=== PATIENT | female | born 1955 | race Caucasian/White ===

== ENCOUNTER → 2021-02-20 | Day surgery (SDC) | payer MEDICARE, OTHER ==
[2021-02-15 15:04] LABS: BASOPHILS % 0.3 % (0.0-1.0); EOSINOPHILS # (AUTO) 0.2 (0.0-0.4); EOSINOPHILS % 2.1 % (0.0-6.0); HEMATOCRIT 41.6 % (34.2-44.1); HEMOGLOBIN 13.5 g/dL (12.0-16.0); LYMPHOCYTES # (AUTO) 1.3 (1.0-3.2); LYMPHOCYTES % 15.3 % (18.0-39.1); MEAN CORPUSCULAR HEMOGLOBIN 31.3 pg (28-32); MEAN CORPUSCULAR HGB CONC 32.5 g/dL (31-35); MEAN CORPUSCULAR VOLUME 96.3 fL (81-99); MONOCYTES # (AUTO) 0.5 (0.2-0.8); NEUTROPHILS # (AUTO) 6.6 (2.1-6.9); NEUTROPHILS % 76.1 % (38.7-80.0); PLATELET COUNT 182 x10e3/uL (140-360); RED BLOOD COUNT 4.32 x10e6/uL (3.6-5.1); RED CELL DISTRIBUTION WIDTH 16.6 % (11.7-14.4)
[2021-02-15 15:21] LABS: ALBUMIN 3.3 g/dL (3.5-5.0); ALBUMIN/GLOBULIN RATIO 0.9 (0.8-2.0); ANION GAP 18.6 mmol/L (8-16); CALCIUM 8.7 mg/dL (8.4-10.2); CREATININE, SERUM 2.61 mg/dL (0.57-1.11); POTASSIUM 4.6 mmol/L (3.5-5.1)
[~2021-02-20] VITALS: Ht 154.9 cm; Wt 99.8 kg
[2021-02-20] VITALS (8 sets, daily range): BP systolic 111–121; BP diastolic 54–91
[~2021-02-20] MED LIST: ALPRAZOLAM 0.5 MG TAB ONE; AMITIZA24 MCG PO; ATROPINE SULFATE2 ML OP; BACLOFEN10 MG PO; BACTROBAN15 G1 TOP; CLONAZEPAM1 MG PO; CORICIDIN HBP1 EAC3 PO; CRESTOR10 MG PO; DIPHENHYDRAMINE HCL 25 MG CAP ONE; DOXEPIN HCL25 MG PO; FENTANYL CITRATE/PF 100MCG/2 ML INJ ONE; HEPARIN SOD (PORCINE) 1000 UNIT/ML 30ML ONE; HEPARIN SOD/SOD CHLORIDE 2,000 ML ONE; HYDROCODON-ACE1 EAC9 PO; IOPAMIDOL 370 MG/ML 200 ML INFUS..BTL INJ ONE; LAMOTRIGINE100 MG PO; LASIX40 MG PO; LATUDA40 MG PO; LEVOTHYROXINE50 MCG PO; LEXAPRO20 MG PO; LIDOCAINE HCL 2% LOCAL 20 ML VIAL ONE; LORATADINE10 MG PO; LOSARTAN POTAS100 MG PO; LYRICA50 MG PO; MIDAZOLAM HCL 2 MG/2 ML VIAL ONE; MORPHINE SULFAT30 M2 PO; POTASSIUM CHLO10 ME1 PO; PREDNISOLONE ACE5 M1 OP; REFRESH OPTIVE15 ML OP; REMERON45 MG PO; SIMBRINZA 1%-0.28 ML OP; SODIUM CHLORIDE 0.9% 1000ML 1,000 ML ONE; SUCRALFATE1 GM PO; TIZANIDINE HCL4 M1 PO; TRAVATAN Z5 ML OP; TRAZODONE HCL300 MG PO; TRAZODONE HCL50 MG PO; TRELEGY ELLIPT1 EACH INH; VYTORIN 10-201 EACH PO; [UNRECOGNIZED DRUG - REMARK]
== END | disposition home or self-care (01) ==
LOC: CATH LAB 12:20
PROVIDERS: ATTEND Internal Medicine Interventional Cardiology
DX: I25.118 Atherosclerotic heart disease of native coronary artery with other forms of angina pectoris (principal); R94.39 Abnormal result of other cardiovascular function study; I25.2 Old myocardial infarction; R03.0 Elevated blood-pressure reading, without diagnosis of hypertension; E78.00 Pure hypercholesterolemia, unspecified; J44.9 Chronic obstructive pulmonary disease, unspecified; H54.62 Unqualified visual loss, left eye, normal vision right eye; Z68.41 Body mass index [BMI] 40.0-44.9, adult; Z86.73 Personal history of transient ischemic attack (TIA), and cerebral infarction without residual deficits; Z82.49 Family history of ischemic heart disease and other diseases of the circulatory system; Z83.3 Family history of diabetes mellitus; Z82.3 Family history of stroke
CPT/HCPCS: 36415; 76937; 80053; 85025; 93454; C1887; C1894; J1644; J2001; J2250; J3010; J7030; Q9967; 99152

== ENCOUNTER → 2021-05-15 | Day surgery (SDC) | payer MEDICARE, OTHER ==
[~2021-05-15] MED LIST changes: -ALPRAZOLAM 0.5 MG TAB ONE; -DIPHENHYDRAMINE HCL 25 MG CAP ONE; -FENTANYL CITRATE/PF 100MCG/2 ML INJ ONE; -HEPARIN SOD (PORCINE) 1000 UNIT/ML 30ML ONE; -HEPARIN SOD/SOD CHLORIDE 2,000 ML ONE; -IOPAMIDOL 370 MG/ML 200 ML INFUS..BTL INJ ONE; -LIDOCAINE HCL 2% LOCAL 20 ML VIAL ONE; -MIDAZOLAM HCL 2 MG/2 ML VIAL ONE; +OR PHACO EYE KIT ONE; +PANTOPRAZOLE SO40 MG PO; +PREOP PHACO EYE KIT ONE; +PROAIR RESPICL90 MCG INH; -SODIUM CHLORIDE 0.9% 1000ML 1,000 ML ONE; +SPIRONOLACTONE25 MG PO; +SYMBICORT 16010.2 GM INH; +TRICOR145 MG PO
[2021-05-15 13:30] VITALS: BP 111/77
== END | disposition home or self-care (01) ==
LOC: OR 10:31
PROVIDERS: ATTEND Ophthalmology
DX: H25.11 Age-related nuclear cataract, right eye (principal); E03.9 Hypothyroidism, unspecified; K21.9 Gastro-esophageal reflux disease without esophagitis; B19.20 Unspecified viral hepatitis C without hepatic coma; N18.9 Chronic kidney disease, unspecified; I65.29 Occlusion and stenosis of unspecified carotid artery; J43.9 Emphysema, unspecified; I50.9 Heart failure, unspecified; I25.2 Old myocardial infarction; I25.119 Atherosclerotic heart disease of native coronary artery with unspecified angina pectoris; E78.5 Hyperlipidemia, unspecified; Z86.73 Personal history of transient ischemic attack (TIA), and cerebral infarction without residual deficits; Z98.61 Coronary angioplasty status
CPT/HCPCS: 66984; U0002; V2632